=== PATIENT | female | born 1955 | race African-American/Black ===

== ENCOUNTER → 2017-05-11 | Outpatient (CLI) | payer SELFPAY | END | disposition home or self-care (01) | LOC: RAD 16:49 | DX: M89.8X8 Other specified disorders of bone, other site (principal) | CPT/HCPCS: 73502 ==

== ENCOUNTER → 2017-05-19 | Outpatient (CLI) | payer SELFPAY | END | disposition home or self-care (01) | LOC: RAD 11:00 | DX: M89.8X8 Other specified disorders of bone, other site (principal) | CPT/HCPCS: 72192 ==